=== PATIENT | female | born 1975 | race Two or more races ===

== ENCOUNTER 2018-07-22 07:53 | Emergency (ER) | payer BC, OTHER ==
[~2018-07-22] VITALS: Ht 160 cm; Wt 64.0 kg
[2018-07-22] MEDS ORDERED: PHENAZOPYRIDINE HCL 100 MG TABLET PO ONE (08:15)
[2018-07-22] MEDS ORDERED: ACETAMINOPHEN ES 500 MG TABLET PO ONE (08:15)
[2018-07-22 08:17] LABS: *BILIRUBIN,URIN NEGATIVE (NEGATIVE); *BLOOD, URINE 2+ (NEGATIVE); *CLARITY,URINE SLIGHTLY CLOUDY (CLEAR); *COLOR,URINE YELLOW (YELLOW); *KETONES,URINE NEGATIVE (NEGATIVE); *UROBILINOGEN,URINE 0.2 E.U./dl (NORMAL); LEUKOCYTE ESTERASE ,URINE 2+ (NEGATIVE); NITRITE, URINE NEGATIVE (NEGATIVE); PH,URINE 5.5 (5.0-8.0); UGLUCOSE NEGATIVE (NEGATIVE)
[2018-07-22] MEDS ORDERED: PHENAZOPYRIDINE HCL 100 MG TABLET ONE (08:22)
[2018-07-22] MEDS ORDERED: ACETAMINOPHEN ES 500 MG TABLET ONE (08:23)
--- NOTE | 2018-07-22 08:23 | NUR ---
PT IS IN ROOM #2A. DR KOHLI EVALUATED THE PT.
[2018-07-22 08:24] LABS: *URINE HCG, QUAL NEGATIVE (NEGATIVE); BACTERIA,URINE FEW /HPF (NONE SEEN); SQUAMOUS EPITHELIAL CELL,UR FEW /HPF (NONE SEEN); WBC,URINE 80-100 /HPF (0-3)
--- NOTE | 2018-07-22 08:52 | NUR ---
PT WAS D/C'd TO HOME. D/C INSTRUCTIONS GIVEN TO THE PT.
[2018-07-22 08:53] VITALS: BP 128/70
== END 2018-07-22 08:54 | disposition home or self-care (01) ==
LOC: ER 07:53
DX: N39.0 Urinary tract infection, site not specified (principal)
CPT/HCPCS: 84703; 87077; 87086; A4663; A9150

== ENCOUNTER 2019-01-19 12:42 | Emergency (ER) | payer BC, OTHER ==
[~2019-01-19] VITALS: Ht 160 cm; Wt 63.0 kg
[2019-01-19] MEDS ORDERED: CEphaleXIN 500 MG CAPSULE PO ONE (13:15)
[2019-01-19] MEDS ORDERED: CEphaleXIN 500 MG CAPSULE ONE (13:16)
[2019-01-19 13:17] LABS: *BILIRUBIN,URIN NEGATIVE (NEGATIVE); *BLOOD, URINE 2+ (NEGATIVE); *CLARITY,URINE CLEAR (CLEAR); *COLOR,URINE YELLOW (YELLOW); *KETONES,URINE NEGATIVE (NEGATIVE); LEUKOCYTE ESTERASE ,URINE 1+ (NEGATIVE); NITRITE, URINE NEGATIVE (NEGATIVE); PH,URINE 7.5 (5.0-8.0); UGLUCOSE NEGATIVE (NEGATIVE)
[2019-01-19 13:23] LABS: BACTERIA,URINE FEW /HPF (NONE SEEN); SQUAMOUS EPITHELIAL CELL,UR MODERATE /HPF (NONE SEEN); WBC,URINE 0-3 /HPF (0-3)
--- NOTE | 2019-01-19 13:50 | NUR ---
Patient discharged to home in stable conditon. Written and verbal after care instructions given. Patient verbalizes understanding of instructions.
== END 2019-01-19 13:52 | disposition home or self-care (01) ==
LOC: ER 12:42
DX: N39.0 Urinary tract infection, site not specified (principal)
CPT/HCPCS: 87077; 87086; A4663

== ENCOUNTER 2019-03-24 10:17 | Emergency (ER) | payer BC, OTHER ==
[~2019-03-24] VITALS: Ht 160 cm; Wt 63.5 kg
[2019-03-24] MEDS ORDERED: predniSONE 20 MG TABLET PO ONE (11:45)
[2019-03-24] MEDS ORDERED: AZITHROMYCIN 250 MG TABLET PO ONE (11:45)
--- NOTE | 2019-03-24 11:45 | NUR ---
Dr. Sunshine at the bedside for MSE.
[2019-03-24] MEDS ORDERED: AZITHROMYCIN 250 MG TABLET ONE (11:49)
[2019-03-24] MEDS ORDERED: predniSONE 20 MG TABLET ONE (11:49)
--- NOTE | 2019-03-24 11:55 | NUR ---
Patient discharged to home in stable conditon. Written and verbal after care instructions given. Patient verbalizes understanding of instructions.
== END 2019-03-24 11:56 | disposition home or self-care (01) ==
LOC: ER 10:17
DX: J18.9 Pneumonia, unspecified organism (principal); J45.909 Unspecified asthma, uncomplicated
CPT/HCPCS: 99283; J7512; A4663; Q0144

== ENCOUNTER 2019-05-26 07:33 | Emergency (ER) | payer BC, OTHER ==
[~2019-05-26] VITALS: Ht 160 cm; Wt 63.5 kg
[2019-05-26 08:09] VITALS: BP 111/82
--- NOTE | 2019-05-26 08:09 | NUR ---
Patient discharged to home in stable conditon. Written and verbal after care instructions given. Patient verbalizes understanding of instructions.
== END 2019-05-26 08:10 | disposition home or self-care (01) ==
LOC: ER 07:35
DX: H66.92 Otitis media, unspecified, left ear (principal); J02.9 Acute pharyngitis, unspecified; J45.909 Unspecified asthma, uncomplicated
CPT/HCPCS: A4663

== ENCOUNTER 2019-11-25 09:33 | Emergency (ER) | payer BC, OTHER ==
[~2019-11-25] VITALS: Ht 160 cm; Wt 63.5 kg
--- NOTE | 2019-11-25 10:39 | NUR ---
Patient discharged to home in stable condition. Written and verbal after care instructions given. Patient verbalizes understanding of instructions. Stressed follow up or return to ER for worsening s/s.
[2019-11-25 10:40] VITALS: BP 130/77
== END 2019-11-25 10:40 | disposition home or self-care (01) ==
LOC: ER 09:33
DX: B34.9 Viral infection, unspecified (principal); J02.9 Acute pharyngitis, unspecified; Z20.828 Contact with and (suspected) exposure to other viral communicable diseases; J45.909 Unspecified asthma, uncomplicated
CPT/HCPCS: 36415; 71046; 86403; 87070; 99284; U0003; A4663

== ENCOUNTER 2019-12-10 08:14 | Emergency (ER) | payer BC, OTHER ==
[~2019-12-10] VITALS: Ht 160 cm; Wt 63.5 kg
[2019-12-10 08:51] LABS: BASOPHILS % (AUTO) 0.4 % (0.0-2.0); EOSINOPHILS % (AUTO) 0.6 % (0.0-7.0); HEMATOCRIT 40.2 % (31.2-41.9); HEMOGLOBIN 13.9 g/dL (10.9-14.3); LYMPHOCYTES # (AUTO) 0.7 K/uL (20.0-40.0); LYMPHOCYTES % (AUTO) 11.6 % (20.5-51.5); MEAN CORPUSCULAR HEMOGLOBIN 30.3 uug (24.7-32.8); MEAN CORPUSCULAR HGB CONC 35 g/dL (32.3-35.6); MEAN CORPUSCULAR VOLUME 87.9 fL (75.5-95.3); MONOCYTES # (AUTO) 0.5 K/uL (2.0-10.0); MONOCYTES % (AUTO) 7.6 % (0.0-11.0); NEUTROPHILS # (AUTO) 4.9 K/uL (1.8-8.9); NEUTROPHILS % (AUTO) 79.8 % (38.5-71.5); PLATELET COUNT (AUTO) 176 K/uL (179-408); RED BLOOD CELL COUNT(AUTO) 4.57 MIL/uL (3.63-4.92); WHITE BLOOD COUNT (AUTO) 6.1 K/uL (3.8-11.8)
[2019-12-10 09:14] LABS: CREATININE 0.8 mg/dL (0.6-1.3); POTASSIUM 3.7 mmol/L (3.5-5.1)
[2019-12-10 09:19] LABS: BILIRUBIN,TOTAL 0.3 mg/dL (0.2-1.0); TOTAL PROTEIN, SERUM 7.6 g/dL (6.4-8.2)
[2019-12-13] MEDS ORDERED: ALBU0.63 NEB (13:14)
== END 2019-12-10 09:26 | disposition home or self-care (01) ==
LOC: ER 08:14
DX: R05 Cough (principal); M79.10 Myalgia, unspecified site; Z20.828 Contact with and (suspected) exposure to other viral communicable diseases; J45.909 Unspecified asthma, uncomplicated; Z87.01 Personal history of pneumonia (recurrent)
CPT/HCPCS: 36415; 71045; 83605; 85025; A4663

== ENCOUNTER 2021-12-02 12:00 | Inpatient (IN) | payer BC, OTHER ==
[~2021-12-02] VITALS: Ht 160 cm; Wt 61.2 kg
[~2021-12-02 12:00] MED LIST: ALBU0.63 NEB
[2021-12-02] MEDS ORDERED: IV NORMAL SALINE 250 ML IV ONE (12:26)
[2021-12-02] MEDS ORDERED: SWABABLE VALVE TRANSFER SET EA MC ONE (12:26)
[2021-12-02] MEDS ORDERED: IOHEXOL 350 100 ML INFUS..BTL ONE (12:26)
--- NOTE | 2021-12-02 12:32 | NUR ---
DR SHARP AT BEDSIDE FOR EVALUATION, TO RADIOLOGY FOR CTA; PT REMAINS AWAKE, ALERT AND ORIENTED, VERBALLY RESPONSIVE.
[2021-12-02 12:46] LABS: HEMATOCRIT 36.7 % (31.2-41.9); MEAN CORPUSCULAR HEMOGLOBIN 30.7 uug (24.7-32.8); MEAN CORPUSCULAR VOLUME 86.5 fL (75.5-95.3); PLATELET COUNT (AUTO) 204 K/uL (179-408)
[2021-12-02 12:52] LABS: CARBON DIOXIDE 29 mmol/L (21-32); CHLORIDE 104 mmol/L (98-107); CREATININE 0.6 mg/dL (0.6-1.3); GLUCOSE 95 mg/dL (74-106); POTASSIUM 3.4 mmol/L (3.5-5.1); UREA NITROGEN, BLOOD 10 mg/dL (7-18)
--- NOTE | 2021-12-02 14:09 | NUR ---
Pt remained alert, oriented, speaking in full sentences and following commands. O2 sat is 96% on room air. No distress or CP. No headache. Seen and evaluated by ERMD and neurologist Dr. Saeed via Telemed. Skin is dry, warm to touch. Capp refill is less than 2 secs. No edema on bilateral LEs. Pt's GCS is 15/15. No c/o pain. Pt has facial symmetry. Able to roll eyes from left to right. Pt with no bilateral arm drifting when eyes were close. Good coordination with index finger to nose with eyes closed. Able to recall the words BLUE, SOCKS, BED. No increase in numbness on the left arm. No bruising, no wounds. Skin is intact.
[2021-12-02] MEDS ORDERED: ASPIRIN EC 325 MG TABLET.DR PO SCH (14:30)
[2021-12-02] MEDS ORDERED: ATORVASTATIN 40 MG TABLET PO SCH (14:30)
[2021-12-02] MEDS ORDERED: ASPIRIN 81 MG TAB.CHEW ONE (14:41)
[2021-12-02] MEDS ORDERED: ATORVASTATIN 40 MG TABLET ONE (15:13)
--- NOTE | 2021-12-02 15:57 | NUR ---
>Pt is asleep. 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 She's trying to sleep at 1110 after the driver service technician she ahd and she felt numbness on her left arm that diminished after an hour. Per daughter, who's with her at that time, pt never had any difficulty in her speech or any facial droop. >Pt speaks in clear sentences. No resp distress. >She's saturating well and breathing well with no s/sx of resp. distress. Lungs clear to auscultation. No cough. >Pt denies CP. No edema. She's able to drink well after a bedside swallow eval. Able to urinate without difficulty in the restroom independently. >GCS remained 15/15, alert, oriented with no c/o pain. PERRLA 3mm, 3mm. >Pt remained afebrile. Skin intact. Flushed IV SL at left wrist with no s/sx of infection or infiltration.
--- NOTE | 2021-12-02 16:24 | NUR ---
Patient to go to room 316.
--- NOTE | 2021-12-02 18:11 | NUR ---
Patient to go to room 321 now.
--- NOTE | 2021-12-02 18:57 | NUR ---
Report given to ARIANNE Huff
--- NOTE | 2021-12-02 19:00 | NUR ---
Assumed care of patient from day shift RN.
[2021-12-02] MEDS ORDERED: ONDANSETRON 4 MG/2 ML VIAL IV PRN (19:15)
[2021-12-02] MEDS ORDERED: ACETAMINOPHEN 325 MG TABLET PO PRN (19:15)
[2021-12-02] MEDS ORDERED: TEMAZEPAM 15 MG CAPSULE PO PRN (19:15)
--- NOTE | 2021-12-02 20:00 | NUR ---
Patient asleep at this time. In no acute distress. Denies any numbness on left UE at this time. Appears comfortable.
--- NOTE | 2021-12-02 20:30 | NUR ---
Received pt via wheelchair assisted by RN. Admitted 46 yr old female with dx of TIA. Denies numbness of upper left extremity and any pain. On room air. IV site on left wrist intact and patent. SR on tele with HR of 51/min. Routine admission care done. Plan of care initiated. Safety measure initiated and call light within reached.
--- NOTE | 2021-12-02 20:40 | NUR ---
Pt. admitted to [facility], Room 330, under care of Dr. Roberson. Report given to ARIANNE Harmon.
[2021-12-02 23:07] VITALS: BP 113/74
[2021-12-03 00:22] VITALS: BP 112/65
[2021-12-03] MEDS ORDERED: PANTOPRAZOLE SODIUM 40 MG TABLET.DR PO SCH (07:00)
[2021-12-03 07:14] LABS: BILIRUBIN,TOTAL 0.7 mg/dL (0.2-1.0); CREATININE 0.7 mg/dL (0.6-1.3); MAGNESIUM 1.8 mg/dL (1.8-2.4); PHOSPHOROUS 4.1 mg/dL (2.5-4.9); POTASSIUM 3.5 mmol/L (3.5-5.1); TOTAL PROTEIN, SERUM 6.5 g/dL (6.4-8.2)
[2021-12-03 07:18] LABS: THYROID STIMULATING HORMONE 1.576 mIU/mL (0.358-3.740)
[2021-12-03 08:11] LABS: HEMATOCRIT 36.9 % (31.2-41.9); MEAN CORPUSCULAR HEMOGLOBIN 30.8 uug (24.7-32.8); PLATELET COUNT (AUTO) 188 K/uL (179-408)
[2021-12-03] MEDS: ASPIRIN EC 325 MG TABLET.DR PO SCH ×2 (08:22→08:23)
--- NOTE | 2021-12-03 11:30 | NUR ---
pt went to [facility] for mri
[2021-12-03] MEDS ORDERED: ALBUTEROL SULFATE 1.25 MG/3 ML NEBU NEB PRN (11:45)
[2021-12-03 12:14] VITALS: BP 109/59
--- NOTE | 2021-12-03 12:48 | NUR ---
pt received back from mri in stable condition
[2021-12-03 12:56] VITALS: BP 111/51
[2021-12-03 16:12] VITALS: BP 118/50
--- NOTE | 2021-12-03 17:20 | NUR ---
dc orders received noted and carried out.dc instruction and education given to the pt.dc heplock per md orders.pt said she will follow up with her pcp in one week .pt left the facility via private car in stable condition
== END 2021-12-03 17:15 | disposition home or self-care (01) | DRG 69 ==
LOC: ER 12:00 → TELE3 20:26
PROVIDERS: ADMIT Internal Medicine; ATTEND Internal Medicine
DX: G45.9 Transient cerebral ischemic attack, unspecified (principal); R20.0 Anesthesia of skin; J45.909 Unspecified asthma, uncomplicated; Z20.822 Contact with and (suspected) exposure to COVID-19; E87.6 Hypokalemia
CPT/HCPCS: 36415; 70450; 70496; 70551; 71045; 72125; 83735; 84100; 84443; 84484; 85025; 93005; 93307; A4663; G0378; Q9967

== ENCOUNTER 2022-01-13 08:42 | Emergency (ER) | payer BC ==
[~2022-01-13] VITALS: Ht 165.1 cm; Wt 61.7 kg
--- NOTE | 2022-01-13 09:10 | NUR ---
PCR COVID TEST DONE, SENT TO LAB
[2022-01-13] MEDS ORDERED: BENZ-13 PO ×2 (09:11→09:37)
[2022-01-13] MEDS ORDERED: IBUP-1955 PO ×2 (09:11→09:37)
[2022-01-13] MEDS ORDERED: KETOROLAC TROMETHAMINE 15 MG INJ IM ONE (09:15)
[2022-01-13] MEDS ORDERED: KETOROLAC TROMETHAMINE 15 MG INJ ONE (09:30)
[2022-01-13 09:44] VITALS: BP 128/84
== END 2022-01-13 09:40 | disposition home or self-care (01) ==
LOC: ER 08:43
DX: U07.1 COVID-19 (principal); J98.8 Other specified respiratory disorders; J45.909 Unspecified asthma, uncomplicated; R03.0 Elevated blood-pressure reading, without diagnosis of hypertension
CPT/HCPCS: 99283; 36415; 96372; U0003; J1885; A4663

== ENCOUNTER 2022-05-21 11:57 | Emergency (ER) | payer BC ==
[~2022-05-21] VITALS: Ht 160 cm; Wt 59.0 kg
[~2022-05-21 11:57] MED LIST changes: -ALBU0.63 NEB; +BENZ-13 PO; +IBUP-1955 PO
--- NOTE | 2022-05-21 12:28 | NUR ---
DR MARTIN AT BEDSIDE FOR EVALUATION.
[2022-05-21] MEDS ORDERED: ALBU18HF2 INH (13:25)
[2022-05-21] MEDS ORDERED: AMOX-430 PO (13:25)
[2022-05-21] MEDS ORDERED: AMOX500C2 PO (13:52)
== END 2022-05-21 13:58 | disposition home or self-care (01) ==
LOC: ER 11:57
DX: J06.9 Acute upper respiratory infection, unspecified (principal); H66.92 Otitis media, unspecified, left ear; J45.909 Unspecified asthma, uncomplicated; Z20.822 Contact with and (suspected) exposure to COVID-19
CPT/HCPCS: A4663